=== PATIENT | male | born 1960 | race African-American/Black ===

== ENCOUNTER 2016-09-24 09:10 | Emergency (ER) | payer MEDICAID, OTHER ==
[~2016-09-24] VITALS: Ht 180.3 cm; Wt 77.5 kg
[~2016-09-24 09:10] MED LIST: VIC PO
[2016-09-24] MEDS ORDERED: CARI350T PO (09:24)
[2016-09-24] MEDS ORDERED: IBUPROFEN 400MG TABLET PO ONE (09:45)
[2016-09-24 10:08] LABS: BASOPHILS % 1.1 % (0.0-2.0); HEMATOCRIT. 42.3 % (42.0-52.0); HEMOGLOBIN. 14.2 g/dL (14.0-18.0); LYMPHOCYTES % 23.6 % (20.0-50.0); MEAN CORPUSCULAR HEMOGLOBIN 30.7 pg (28.0-32.0); MEAN CORPUSCULAR HGB CONC 33.6 g/dL (31.0-37.0); MEAN CORPUSCULAR VOLUME 91.5 fL (80.0-94.0); MEAN PLATELET VOLUME 7.6 fl (7.4-10.4); MONOCYTES % 13.1 % (2.0-8.0); NEUTROPHILS % 59.2 % (40.0-76.0); PLATELET 252 x1000/uL (130-400); RED BLOOD CELL COUNT 4.63 mill/uL (4.7-6.1); RED CELL DISTRIBUTION WIDTH 15.4 % (11.6-14.6); WHITE BLOOD COUNT 5.3 x1000/uL (4.5-11.0)
[2016-09-24 10:11] LABS: ALBUMIN 3.3 g/dL (3.4-5.0); ANION GAP 10; CALCIUM 8.6 mg/dL (8.5-10.1); CARBON DIOXIDE 30 mEq/L (21-32); CHLORIDE 106 mEq/L (98-107); INDEX HEMOLYSI 1 (1-3); INDEX ICTERIC 1 (1-4); INDEX LIPEMIC 1 (1-3); LIPASE 77 IU/L (73-393)
[2016-09-24 10:15] LABS: INR 1.1; PARTIAL THROMBOPLASTIN TIME 28.4 sec (24.0-34.0); PROTHROMBIN TIME 11.5 sec
[2016-09-24 10:18] LABS: ALANINE AMINOTRANSFERASE 15 IU/L (13-61); TROPONIN I < 0.02 ng/mL (0.00-0.04); UREA NITROGEN BLOOD 15 mg/dL (7-21); eGFR > 60 mL/min (>60)
[2016-09-24 11:33] VITALS: BP 137/78
== END 2016-09-24 11:35 | disposition home or self-care (01) ==
LOC: ER 09:33
DX: R07.89 Other chest pain (principal); F17.200 Nicotine dependence, unspecified, uncomplicated; Z88.6 Allergy status to analgesic agent
CPT/HCPCS: 36415; 71010; 80053; 83690; 84484; 85025; 85610; 85730; 93005; 99285

== ENCOUNTER 2022-02-26 23:09 | Emergency (ER) | payer MEDICAID, OTHER ==
[~2022-02-26] VITALS: Ht 170.2 cm; Wt 61.0 kg
[2022-02-27] MEDS ORDERED: IBUP-2028 MT (01:59)
[2022-02-27] MEDS ORDERED: TOPUD PO (01:59)
[2022-02-27] MEDS ORDERED: PERM60CR4 TP (01:59)
[2022-02-27] MEDS ORDERED: PERMETHRIN 5% CREAM 60GM TOP ONE (02:00)
[2022-02-27] MEDS ORDERED: KETOROLAC 60MG/2ML VIAL IM ONE (02:00)
[2022-02-27] MEDS ORDERED: ACETAMINOPHEN 325MG TABLET PO ONE (02:00)
[2022-02-27 02:54] VITALS: BP 148/87
== END 2022-02-27 02:56 | disposition home or self-care (01) ==
LOC: ER 23:09
DX: B86 Scabies (principal); M79.604 Pain in right leg; I10 Essential (primary) hypertension; Z85.6 Personal history of leukemia; Z87.891 Personal history of nicotine dependence; Z59.00 Homelessness unspecified
CPT/HCPCS: 96372; 99283; J1885